=== PATIENT | male | born 1950 ===

== ENCOUNTER 2017-02-25 19:40 | Emergency (ER) | payer MEDICARE ==
[2017-02-25 19:44] VITALS: BMI 29.2
[2017-02-25 19:47] VITALS: TEMP 98.4
[2017-02-25] MEDS ORDERED: Iohexol 240 (50 ml) ONE (20:12)
[2017-02-25] MEDS ORDERED: Iohexol 240 (50 ml) PO STA (20:16)
[2017-02-25 21:18] LABS: ALB/GLOB RATIO 1.4 (1.0-2.1); ALKALINE PHOSPHATASE 75 U/L (38-126); ALT/SGPT 36 U/L (21-72); AST/SGOT 31 U/L (17-59); BILIRUBIN,TOTAL 0.3 mg/dl (0.2-1.3); BLOOD UREA NITROGEN 19 mg/dl (9-20); CALCIUM 10.2 mg/dL (8.4-10.2); CARBON DIOXIDE 27 mmol/L (22-30); CHLORIDE 97 mmol/L (98-107); GFR AFRICAN-AMERICAN > 60; GLUCOSE,RANDOM 189 mg/dL (75-110); LIPASE 78 U/L (23-300); MAGNESIUM 1.6 MG/DL (1.6-2.3); PHOSPHOROUS 4.4 mg/dl (2.5-4.5); POTASSIUM 4.5 MMOL/L (3.6-5.0); SODIUM 139 mmol/l (132-148)
[2017-02-25 21:23] LABS: PARTIAL THROMBOPLASTIN TIME 25.1 SECONDS (23.3-32.5)
[2017-02-25 21:35] LABS: BASO % 0.4 % (0.0-2.0); EOS % 0.1 % (0.0-4.0); HEMATOCRIT 40.6 % (35.0-51.0); LYMPH # 1.3 K/uL (1.0-4.3); LYMPH % 11.4 % (20.0-40.0); MEAN CELL VOLUME 86.6 fl (80.0-94.0); MEAN CORPUSCULAR HEMOGLOBIN 28.5 pg (27.0-31.0); MEAN CORPUSCULAR HGB CONC 32.8 g/dL (33.0-37.0); MEAN PLATELET VOLUME 8.1 fl (7.2-11.7); MONO # 0.6 K/uL (0.0-0.8); MONO % 4.9 % (0.0-10.0); NEUT # 9.6 K/uL (1.8-7.0); NEUT % 83.2 % (50.0-75.0); RED CELL DISTRIBUTION WIDTH 14.2 % (11.5-14.5); WHITE BLOOD COUNT 11.5 K/uL (4.8-10.8)
--- NOTE | 2017-02-25 21:36 | ED PDOC ---
HPI: Abdomen Time Seen by Provider: 02/25/17 19:51 Chief Complaint (Nursing): Abdominal Pain Chief Complaint (Provider): Abdominal Pain History Per: Patient History/Exam Limitations: no limitations Onset/Duration Of Symptoms: Days (x1) Outside of [place] travel?: No Current Symptoms Are (Timing): Still Present Location Of Pain/Discomfort: Epigastric Associated Symptoms: Nausea, Vomiting, Other (Weakness) Additional Complaint(s): 66 year old male presents to ED with complaints of abdominal pain x1 day and has a past medical history of CVA with right hemiparesis, HTN, DM, and gastritis. Patient notes that pain is epigastric and radiates to his chest. (+) x5-6 episodes of vomiting, severe nausea, diziness, headache, decreased appetite , and generalized weakness. (-) diarrhea, constipation, urinary symptoms, SOB, outright chest pain, sick contacts, or recent travel. PCP: Dr. Bright Past Medical History Reviewed: Historical Data, Nursing Documentation, Vital Signs Vital Signs: Last Vital Signs Temp 98.4 F 02/25/17 19:44 Pulse 76 02/25/17 22:21 Resp 16 02/25/17 22:21 BP 134/76 02/25/17 22:21 Pulse Ox 98 02/25/17 23:05 - Medical History PMH: CAD, CVA (5 years ago - R sided weakness), Depression, Diabetes, HTN, Hypercholesterolemia Denies: No Chronic Diseases, Chronic Kidney Disease - Surgical History Surgical History: Coronary Stent - Family History Family History: States: [place] (Mother had 3 heart attacks) - Home Medications Home Medications: Ambulatory Orders Medication Instructions Recorded Donepezil Hydrochloride [Aricept] 5 mg PO DAILY 10/20/14 Ergocalciferol (Vitamin D2) 50,000 unit PO Q7D 10/20/14 [Vitamin D2] Glimepiride 2 mg PO BID 10/20/14 Hydrochlorothiazide/Valsarta 1 tab PO DAILY 10/20/14 [Diovan Hct 25 mg-320 mg] Metformin Hydrochloride/Lanie 1 tab PO BID 10/20/14 [Janumet 1000 mg-50 mg] Atorvastatin [Lipitor] 20 mg PO HS #0 tab 10/26/14 Clopidogrel [Plavix] 75 mg PO DAILY #0 tab 10/26/14 Metoprolol Tartrate [Lopressor] 50 mg PO Q12 #0 tab 10/26/14 Tamsulosin HCl [Flomax] 0.4 mg PO DAILY #14 cap 04/14/15 Meclizine HCl [Antivert] 25 mg PO TID #15 tab 05/17/15 Aspirin [Aspirin Chewable] 81 mg PO DAILY 06/17/15 Ebisr-6-Vrbk Ethyl Esters 1 GM 4 gm PO DAILY #0 sgl 06/20/15 [Lovaza] Ibuprofen [Motrin] 600 mg PO TID 7 Days 09/24/16 Famotidine [Pepcid] 40 mg PO DAILY PRN #30 tab 02/25/17 Meclizine [Meclizine*] 25 mg PO Q6 PRN #30 tab 02/25/17 Ondansetron [Zofran] 4 mg PO Q8H PRN #30 tab 02/25/17 - Allergies Allergies/Adverse Reactions: Allergies Allergy/AdvReac Type Severity Reaction Status Date / Time No Known Allergies Allergy Verified 02/25/17 19:44 Review of Systems ROS Statement: Except As Marked, All Systems Reviewed And Found Negative Constitutional: Positive for: Weakness (generalized) Cardiovascular: Positive for: Chest Pain (abdominal pain radiates into chest) Respiratory: Negative for: Shortness of Breath Gastrointestinal: Positive for: Nausea, Vomiting, Abdominal Pain, Other ( decreased appetite). Negative for: Diarrhea, Constipation Genitourinary Male: Negative for: Dysuria, Frequency, Incontinence, Hematuria Neurological: Positive for: Headache, Dizziness Physical Exam - Reviewed Nursing Documentation Reviewed: Yes Vital Signs Reviewed: Yes - Physical Exam Appears: Positive for: Uncomfortable, In Acute Distress (moderate painful distress) Head Exam: Positive for: ATRAUMATIC Skin: Positive for: Normal Color, Warm Eye Exam: Positive for: EOMI, PERRL ENT: Positive for: Pharynx Is (clear). Negative for: Normal ENT Inspection ( dry mucous membranes) Neck: Positive for: Painless ROM, Supple Cardiovascular/Chest: Positive for: Regular Rate, Rhythm, Tachycardia. Negative for: Murmur Respiratory: Positive for: Normal Breath Sounds. Negative for: Wheezing, Respiratory Distress Gastrointestinal/Abdominal: Positive for: Soft, Tenderness (epigastric tenderness). Negative for: Mass, Distended, Guarding, Rebound, Other ((-) McBurney or Mayes) Back: Positive for: Normal Inspection. Negative for: Vertebral Tenderness Extremity: Positive for: Other (RIGHT hemiparesis). Negative for: Deformity Lymphatic: Negative for: Adenopathy Neurologic/Psych: Positive for: Alert, Oriented, Motor/Sensory Deficits (Right sided hemiparesis secondary to CVA) - Laboratory Results Result Diagrams: 02/25/17 21:00 02/25/17 21:00 - ECG O2 Sat by Pulse Oximetry: 98 (RA) Pulse Ox Interpretation: Normal Medical Decision Making Medical Decision Makin Initial impression: abdominal pain, vomiting DDx: pancreatitis, gastritis, gastroenteritis, cholecystitis, obstruction, dehydration Initial plan: * CT HEAD * EKG * Labs * Lactic Acid * LDH * Magnesium * Phosphorus * PTT/PT * Acetaminophen 975mg PO * Pepcid 40mg IVP * Iohexol 50mL PO * Antivert 25mg PO * Zofran Inj 4mg IVP * BCx * UCx * UA EXAM: CT Head Without Intravenous Contrast CLINICAL HISTORY: 66 years old, male; Signs and symptoms; Dizziness and other: Vomiting, headache ; Additional info: Dizziness headahc vomiting TECHNIQUE: Axial computed tomography images of the head/brain without intravenous contrast. This CT exam was performed using one or more of the following dose reduction techniques: automated exposure control, adjustment of the mA and/or kV according to patient size, and/or use of iterative reconstruction technique. Coronal and sagittal reformatted images were created and reviewed. EXAM DATE/TIME: 02/25/2017 8:07 PM COMPARISON: CT - HEAD W/O CONTRAST 09/24/2016 11:35:59 AM FINDINGS: Brain: There is dilatation of sulci gyri and ventricles. There is no midline shift. There is decreased attenuation in periventricular white matter. There are multiple small lacunar infarcts in the thalami and basal ganglia, unchanged. There are no focal masses. There are no focal hemorrhages. Calcification in the posterior left parietal lobe is unchanged. Gunn-white differentiation is visualized. Ventricles: See above Bones: Cranial vault is intact. Soft tissues: unremarkable Sinuses: There is no acute sinusitis. Ears and mastoids: Middle ears and mastoids are unremarkable. Orbits: Orbital contents are unremarkable. IMPRESSION: Atrophy and small vessel disease, multiple old lacunar infarcts; no bleed Thank you for allowing us to participate in the care of your patient. Dictated and Authenticated by: KorSalina Sands MD 02/25/2017 11:26 PM Eastern Time ([place] & [place]) XAM: CT Abdomen and Pelvis With Intravenous Contrast CLINICAL HISTORY: 66 years old, male; Signs and symptoms; Vomiting; Additional info: Vomiting abd pain TECHNIQUE: Axial computed tomography images of the abdomen and pelvis with intravenous contrast. This CT exam was performed using one or more of the following dose reduction techniques : automated exposure control, adjustment of the mA and/or kV according to patient size, and/ or use of iterative reconstruction technique. Coronal and sagittal reformatted images were created and reviewed. CONTRAST: 90 mL of [id number] administered intravenously. EXAM DATE/TIME: 02/25/2017 9:38 PM COMPARISON: CT - ABD PELVIS PO IV CONTRAST 06/17/2015 1:35:14 PM FINDINGS: Artifacts: Motion artifact degrades image quality. Lower thorax: Heart size is at the upper limits of normal. There is atelectasis and scarring at the lung bases. ABDOMEN: Liver: There is fatty infiltration of the liver. Gallbladder and bile ducts: unremarkable Pancreas: Pancreas is mildly atrophic. Spleen: unremarkable Adrenals: unremarkable Kidneys and ureters: unremarkable Stomach and bowel: The stomach is partially distended. Rotation is normal. There is contrast and air throughout the small bowel. There is no obstruction. Appendix is unremarkable. There is diverticulosis Appendix: See stomach and bowel PELVIS: Bladder: Bladder is partially distended. There is mild bladder wall prominence. Reproductive: Prostate is mildly enlarged. Seminal vesicles are unremarkable. ABDOMEN and PELVIS: Intraperitoneal space: There is no free air or free fluid. Bones/joints: There are degenerative changes in the osseus structures. Soft tissues: There is a small umbilical hernia. Vasculature: There are vascular calcifications. Lymph nodes: There is no pathologic adenopathy. IMPRESSION: Fatty liver; no acute solid visceral or bowel abnormality; no appendicitis or diverticulitis; atelectatic changes at the lung bases Additional findings as described above. Thank you for allowing us to participate in the care of your patient. Dictated and Authenticated by: Salina Oropeza MD 02/25/2017 11:35 PM Eastern Time ([place] & [place]) On reeval pt feels much better. Tolerated PO and abd benign. Eager to go home. DW pt findings and plan of care Scribe Attestation: Documented by Susie Ahumada acting as a scribe for Griselda Sofia MD. Scribe Attestation: All medical record entries made by the Scribe were at my direction and personally dictated by me. I have reviewed the chart and agree that the record accurately reflects my personal performance of the history, physical exam, medical decision making, and the department course for this patient. I have also personally directed, reviewed, and agree with the discharge instructions and disposition. Disposition - Clinical Impression Clinical Impression: Dizziness, Vomiting, Abdominal discomfort Counseled Patient/Family Regarding: Studies Performed, Diagnosis, Need For Followup, Rx Given - Disposition Referrals: John Conklin MD [Family Provider] - ([facility]) Disposition: Routine/Home Disposition Time: 23:46 Condition: IMPROVED Prescriptions: Famotidine [Pepcid] 40 mg PO DAILY PRN #30 tab PRN Reason: reflux Meclizine [Meclizine*] 25 mg PO Q6 PRN #30 tab PRN Reason: Dizziness Ondansetron [Zofran] 4 mg PO Q8H PRN #30 tab PRN Reason: Nausea/Vomiting Instructions: Acute Abdominal Pain (ED), Acute Nausea and Vomiting (ED), Dizziness (ED) Print Language: KHMER
[2017-02-25] MEDS ORDERED: Sodium Chloride 0.9% 500 ML IV STA (21:58)
[2017-02-25] MEDS ORDERED: Sodium Chloride 0.9% 50 ML IV ONE (22:16)
[2017-02-25] MEDS ORDERED: Iohexol 300 100 ML IJ ONE (22:16)
[2017-02-25 22:22] VITALS: BP 134/76; PULSE 76; RESP 16
[2017-02-25 23:06] VITALS: O2SAT 98
--- NOTE | 2017-02-25 23:27 | CT ---
EXAM: CT Head Without Intravenous Contrast CLINICAL HISTORY: 66 years old, male; Signs and symptoms; Dizziness and other: Vomiting, headache; Additional info: Dizziness headahc vomiting TECHNIQUE: Axial computed tomography images of the head/brain without intravenous contrast. This CT exam was performed using one or more of the following dose reduction techniques: automated exposure control, adjustment of the mA and/or kV according to patient size, and/or use of iterative reconstruction technique. Coronal and sagittal reformatted images were created and reviewed. EXAM DATE/TIME: 02/25/2017 8:07 PM COMPARISON: CT - HEAD W/O CONTRAST 09/24/2016 11:35:59 AM FINDINGS: Brain: There is dilatation of sulci gyri and ventricles. There is no midline shift. There is decreased attenuation in periventricular white matter. There are multiple small lacunar infarcts in the thalami and basal ganglia, unchanged. There are no focal masses. There are no focal hemorrhages. Calcification in the posterior left parietal lobe is unchanged. Gunn-white differentiation is visualized. Ventricles: See above Bones: Cranial vault is intact. Soft tissues: unremarkable Sinuses: There is no acute sinusitis. Ears and mastoids: Middle ears and mastoids are unremarkable. Orbits: Orbital contents are unremarkable. IMPRESSION: Atrophy and small vessel disease, multiple old lacunar infarcts; no bleed
--- NOTE | 2017-02-25 23:35 | CT ---
EXAM: CT Abdomen and Pelvis With Intravenous Contrast CLINICAL HISTORY: 66 years old, male; Signs and symptoms; Vomiting; Additional info: Vomiting abd pain TECHNIQUE: Axial computed tomography images of the abdomen and pelvis with intravenous contrast. This CT exam was performed using one or more of the following dose reduction techniques: automated exposure control, adjustment of the mA and/or kV according to patient size, and/or use of iterative reconstruction technique. Coronal and sagittal reformatted images were created and reviewed. CONTRAST: 90 mL of [id number] administered intravenously. EXAM DATE/TIME: 02/25/2017 9:38 PM COMPARISON: CT - ABD PELVIS PO IV CONTRAST 06/17/2015 1:35:14 PM FINDINGS: Artifacts: Motion artifact degrades image quality. Lower thorax: Heart size is at the upper limits of normal. There is atelectasis and scarring at the lung bases. ABDOMEN: Liver: There is fatty infiltration of the liver. Gallbladder and bile ducts: unremarkable Pancreas: Pancreas is mildly atrophic. Spleen: unremarkable Adrenals: unremarkable Kidneys and ureters: unremarkable Stomach and bowel: The stomach is partially distended. Rotation is normal. There is contrast and air throughout the small bowel. There is no obstruction. Appendix is unremarkable. There is diverticulosis Appendix: See stomach and bowel PELVIS: Bladder: Bladder is partially distended. There is mild bladder wall prominence. Reproductive: Prostate is mildly enlarged. Seminal vesicles are unremarkable. ABDOMEN and PELVIS: Intraperitoneal space: There is no free air or free fluid. Bones/joints: There are degenerative changes in the osseus structures. Soft tissues: There is a small umbilical hernia. Vasculature: There are vascular calcifications. Lymph nodes: There is no pathologic adenopathy. IMPRESSION: Fatty liver; no acute solid visceral or bowel abnormality; no appendicitis or diverticulitis; atelectatic changes at the lung bases Additional findings as described above.
--- NOTE | 2017-02-26 16:14 | CARD ---
APPROVED REPORT EKG Measurement Heart [id number] <Conclusion> Normal sinus rhythm Minimal voltage criteria for LVH, may be normal variant Inferior infarct, age undetermined Abnormal ECG
== END 2017-02-25 23:56 | disposition home or self-care (01) ==
LOC: H.ER 19:40
DX: R10.9 Unspecified abdominal pain (principal); R11.2 Nausea with vomiting, unspecified; R42 Dizziness and giddiness; E11.9 Type 2 diabetes mellitus without complications; E78.00 Pure hypercholesterolemia, unspecified; I10 Essential (primary) hypertension; I25.10 Atherosclerotic heart disease of native coronary artery without angina pectoris; K76.0 Fatty (change of) liver, not elsewhere classified; I73.9 Peripheral vascular disease, unspecified; Z79.82 Long term (current) use of aspirin; Z86.73 Personal history of transient ischemic attack (TIA), and cerebral infarction without residual deficits; Z95.5 Presence of coronary angioplasty implant and graft
CPT/HCPCS: 70450; 74177; 80053; 82948; 83605; 83615; 83690; 83735; 84100; 85025; 85610; 85730; 87040; 93005; 96374; 96375; 99284; J2405; Q9966; Q9967

== ENCOUNTER 2017-09-02 10:46 | Emergency (ER) | payer MEDICARE ==
[2017-09-02 10:46] VITALS: BMI 29.2
[2017-09-02 11:32] VITALS: BP 154/109; PULSE 94; RESP 18; TEMP 98.1; O2SAT 96
[2017-09-02] MEDS ORDERED: Lidocaine 5% Patch TD STA (12:54)
--- NOTE | 2017-09-02 13:02 | ED PDOC ---
HPI: Back Time Seen by Provider: 09/02/17 12:12 Chief Complaint (Nursing): Back Pain Chief Complaint (Provider): Back Pain History Per: Patient History/Exam Limitations: no limitations Onset/Duration Of Symptoms: Days (x2 weeks) Current Symptoms Are (Timing): Still Present Pain Scale Rating Of: 10 Additional Complaint(s): Jai Mcallister is a 66 year old male, with a past medical history of Diabetes, hypertension, hypercholesterolemia, and CVA, who presents to the emergency department complaining of lower back pain onset for 2 weeks. Patient states the pain radiates down the right leg. He denies any numbness or tingling, chest pain , headache, dizziness, fever, nausea, vomit, diarrhea or abdominal pain. No further medical complaints. PMD: Haylie Aguero Past Medical History Reviewed: Historical Data, Nursing Documentation, Vital Signs Vital Signs: Last Vital Signs Temp 98.1 F 09/02/17 11:30 Pulse 94 H 09/02/17 11:30 Resp 18 09/02/17 11:30 BP 154/109 H 09/02/17 11:30 Pulse Ox 96 09/02/17 11:30 - Medical History PMH: Back Problems, CAD, CVA (5 years ago - R sided weakness), Depression, Diabetes, HTN, Hypercholesterolemia Denies: Chronic Kidney Disease - Surgical History Surgical History: Coronary Stent - Family History Family History: States: [place] (Mother had 3 heart attacks) - Home Medications Home Medications: Ambulatory Orders Medication Instructions Recorded Donepezil Hydrochloride [Aricept] 5 mg PO DAILY 10/20/14 Ergocalciferol (Vitamin D2) 50,000 unit PO Q7D 10/20/14 [Vitamin D2] Glimepiride 2 mg PO BID 10/20/14 Hydrochlorothiazide/Valsarta 1 tab PO DAILY 10/20/14 [Diovan Hct 25 mg-320 mg] Metformin Hydrochloride/Lanie 1 tab PO BID 10/20/14 [Janumet 1000 mg-50 mg] Atorvastatin [Lipitor] 20 mg PO HS #0 tab 10/26/14 Clopidogrel [Plavix] 75 mg PO DAILY #0 tab 10/26/14 Metoprolol Tartrate [Lopressor] 50 mg PO Q12 #0 tab 10/26/14 Tamsulosin HCl [Flomax] 0.4 mg PO DAILY #14 cap 04/14/15 Meclizine HCl [Antivert] 25 mg PO TID #15 tab 05/17/15 Aspirin [Aspirin Chewable] 81 mg PO DAILY 06/17/15 Lqueb-9-Seoj Ethyl Esters 1 GM 4 gm PO DAILY #0 sgl 06/20/15 [Lovaza] Ibuprofen [Motrin] 600 mg PO TID 7 Days tab 09/24/16 Famotidine [Pepcid] 40 mg PO DAILY PRN #30 tab 02/25/17 Meclizine [Meclizine*] 25 mg PO Q6 PRN #30 tab 02/25/17 Ondansetron [Zofran] 4 mg PO Q8H PRN #30 tab 02/25/17 - Allergies Allergies/Adverse Reactions: Allergies Allergy/AdvReac Type Severity Reaction Status Date / Time No Known Allergies Allergy Verified 09/02/17 11:30 Review of Systems ROS Statement: Except As Marked, All Systems Reviewed And Found Negative Constitutional: Negative for: Fever Cardiovascular: Negative for: Chest Pain Gastrointestinal: Negative for: Nausea, Vomiting, Abdominal Pain, Diarrhea Musculoskeletal: Positive for: Back Pain (lower, radiating down the right leg), Leg Pain (right) Neurological: Negative for: Numbness (or tingling), Headache, Dizziness Physical Exam - Reviewed Nursing Documentation Reviewed: Yes Vital Signs Reviewed: Yes - Physical Exam Appears: Positive for: Well, Non-toxic, No Acute Distress Head Exam: Positive for: ATRAUMATIC, NORMAL INSPECTION, NORMOCEPHALIC Skin: Positive for: Normal Color, Warm, Dry Eye Exam: Positive for: EOMI, Normal appearance, PERRL Neck: Positive for: Normal, Painless ROM, Supple Cardiovascular/Chest: Positive for: Regular Rate, Rhythm. Negative for: Murmur Respiratory: Positive for: Normal Breath Sounds. Negative for: Respiratory Distress Gastrointestinal/Abdominal: Positive for: Normal Exam, Bowel Sounds, Soft. Negative for: Tenderness, Guarding, Rebound Back: Positive for: Other (+ Straight leg raise test. Mild tenderness to lower back) Extremity: Positive for: Normal ROM. Negative for: Tenderness, Pedal Edema Neurologic/Psych: Positive for: Alert, Oriented - ECG O2 Sat by Pulse Oximetry: 96 (RA) Pulse Ox Interpretation: Normal - Progress ED Course And Treament: 1309: Pt. not in room. Left before treatment complete. Pt. aaox3. Had capacity to make decisions when last seen. Ambulated with no issues at all times. Medical Decision Making Medical Decision Making: Initial Impression: Lower back pain Initial Plan: --Urine Dip --Lumbar Spine Complete [RAD] --Tylenol 650 mg PO --Lidoderm 1 ea TD --reevaluation Scribe Attestation: Documented by Evens Rice, acting as a scribe for Jose Elias Bland MD Provider Scribe Attestation: All medical record entries made by the Scribe were at my direction and personally dictated by me. I have reviewed the chart and agree that the record accurately reflects my personal performance of the history, physical exam, medical decision making, and the department course for this patient. I have also personally directed, reviewed, and agree with the discharge instructions and disposition. Disposition - Clinical Impression Clinical Impression: Back pain - Patient ED Disposition Is Patient to be Admitted: No - Disposition Disposition: Left W/O Treatment Disposition Time: 13:10 Condition: UNKNOWN
== END 2017-09-02 13:05 | disposition left against medical advice (07) ==
LOC: H.ER 10:46
DX: M54.9 Dorsalgia, unspecified (principal); E11.9 Type 2 diabetes mellitus without complications; E78.00 Pure hypercholesterolemia, unspecified; F32.9 Major depressive disorder, single episode, unspecified; I10 Essential (primary) hypertension; I25.10 Atherosclerotic heart disease of native coronary artery without angina pectoris; Z79.82 Long term (current) use of aspirin; Z86.73 Personal history of transient ischemic attack (TIA), and cerebral infarction without residual deficits; Z95.5 Presence of coronary angioplasty implant and graft